=== PATIENT | male | born 1980 | race Caucasian/White ===

== ENCOUNTER 2024-10-31 13:49 | Day surgery (SDC) | payer OTHER ==
[~2024-10-31] VITALS: Ht 188 cm; Wt 111.2 kg
[~2024-10-31 13:49] MED LIST: Amoxicillin500 MG PO; Atropine Sulfate 0.1 MG/ML 10ML SYR ONE; Glycopyrrolate 0.2 MG/ML 1MLVIAL ONE; Lactated Ringer's 1,000 ML IV ONE; Lidocaine 2% 5 ML SDV ONE; Lidocaine HCl/Pf 1% 5 ML VIAL ONE; Methylene Blue 1% 100 MG/10 ML VIAL ONE; Ondansetron HCl 2 MG / ML 2ML Vial ONE; ePHEDrine Sulfate 50 MG/ML 1ML Injection ONE; propofoL 50 ML IV ONE
[2024-10-31] MEDS ORDERED: VENLAFAXINE HCL75 M2 (13:59)
[2024-10-31] MEDS ORDERED: LORATADINE10 MG (13:59)
[2024-10-31] MEDS ORDERED: FLUTICASONE-SA1 EAC1 (13:59)
[2024-10-31] MEDS ORDERED: Lactated Ringer's 1,000 ML IV ONE (14:45)
[2024-10-31] MEDS ORDERED: propofoL 50 ML IV ONE (15:30)
[2024-10-31 16:16] VITALS: BP 108/72
== END 2024-10-31 16:15 | disposition home or self-care (01) ==
LOC: ORSCSDS 13:49
PROVIDERS: Surgery
PROC: 0DJD8ZZ Inspection of Lower Intestinal Tract, Via Natural or Artificial Opening Endoscopic (ICD-10-PCS; principal; 2024-10-31 15:15)
DX: Z12.11 Encounter for screening for malignant neoplasm of colon (principal); F41.9 Anxiety disorder, unspecified; G47.30 Sleep apnea, unspecified; Z87.891 Personal history of nicotine dependence; Z79.899 Other long term (current) drug therapy
CPT/HCPCS: J0461; J2003; J2405; J2704; J7120; Q9968

== ENCOUNTER 2025-04-02 00:56 | Observation (INO) | payer OTHER ==
[2025-04-02] VITALS (10 sets, daily range): BP systolic 129–156; BP diastolic 78–102
[~2025-04-02] VITALS: Ht 188 cm; Wt 110.5 kg
[~2025-04-02 00:56] MED LIST changes: -Atropine Sulfate 0.1 MG/ML 10ML SYR ONE; +FLUTICASONE-SA1 EAC1; -Glycopyrrolate 0.2 MG/ML 1MLVIAL ONE; +LORATADINE10 MG; -Lactated Ringer's 1,000 ML IV ONE; -Lidocaine 2% 5 ML SDV ONE; -Lidocaine HCl/Pf 1% 5 ML VIAL ONE; -Methylene Blue 1% 100 MG/10 ML VIAL ONE; -Ondansetron HCl 2 MG / ML 2ML Vial ONE; +VENLAFAXINE HCL75 M2 PO; -ePHEDrine Sulfate 50 MG/ML 1ML Injection ONE; -propofoL 50 ML IV ONE
[2025-04-02 01:20] LABS: BASOPHILS ABSOLUTE AUTO 0.02 K/mm3 (0.00-0.23); BASOPHILS PERCENT AUTO 0 % (0-2); EOSINOPHILS ABSOLUTE AUTO 0.04 K/mm3 (0.00-0.68); EOSINOPHILS PERCENT AUTO 1 % (0-6); Hematocrit 42.0 % (37.0-53.0); Hemoglobin 14.5 g/dL (13.5-17.5); IMMATURE GRAN ABSOLUTE AUTO 0.01 K/mm3 (0.00-0.10); IMMATURE GRAN PERCENT AUTO 0 % (0-1); LYMPHOCYTES ABSOLUTE AUTO 3.27 K/mm3 (0.84-5.20); LYMPHOCYTES PERCENT AUTO 53 % (21-46); MONOCYTES ABSOLUTE AUTO 0.52 K/mm3 (0.16-1.47); MONOCYTES PERCENT AUTO 8 % (4-13); Mean Corpuscular HGB Conc 34.5 g/dL (31.5-36.5); Mean Corpuscular Volume 86 fL (80-100); NEUTROPHILS ABSOLUTE AUTO 2.36 K/mm3 (1.96-9.15); NEUTROPHILS PERCENT AUTO 38 % (41-73); NRBC ABSOLUTE 0.00 K/mm3 (0.00-0.02); NRBC Auto 0.0 /100 WBC (0.0-0.2); Platelet Count 165 K/mm3 (150-400); RDW Coefficient Variation 12.5 % (11.7-14.2); RDW Standard Deviation 39.2 fL (35.1-46.3)
[2025-04-02 01:38] LABS: Alanine Aminotransfer (ALT/SGP 73.0 U/L (12-78); Albumin, Blood 4.0 g/dL (3.4-5.0); Albumin/Globulin Ratio 1.3 (0.8-1.8); Anion Gap 7.0 mmol/L (3-11); Aspartate Aminotrans (AST/SGOT 26.0 U/L (12-37); Bilirubin, Total 0.2 mg/dL (0.1-1.0); Blood Urea Nitrogen 19.0 mg/dL (8-24); CO2, Blood 27.0 mmol/L (21-32); Calcium, Blood 8.7 mg/dL (8.5-10.1); Chloride, Blood 109.0 mmol/L (98-108); Creatinine, Blood 1.21 mg/dL (0.60-1.20); Globulin, Blood 3.0 g/dL (2.2-4.0); Glucose, Blood 116.0 mg/dL (70-99); Potassium, Blood 3.4 mmol/L (3.5-5.5); Sodium, Blood 140.0 mmol/L (136-145); Total Protein, Blood 7.0 g/dL (6.4-8.2)
[2025-04-02] MEDS ORDERED: NS 1,000 ML IV SCH ×3 (03:00→13:00)
[2025-04-02] MEDS ORDERED: Lidocaine 2% Viscous Soln 15 ML UDC PO ONE (03:00)
[2025-04-02] MEDS ORDERED: Ondansetron HCl 2 MG / ML 2ML Vial IV PRN (05:55)
[2025-04-02] MEDS ORDERED: FentaNYL Citrate 50 MCG/ML 2 ML Injection IV PRN (06:00)
[2025-04-02 06:10] LABS: CHOL/HDL RATIO 3.7; Cholesterol 173 mg/dL (50-200); HDL Cholesterol 47 mg/dL (>39); LDL/HDL RATIO 2.3; Low Density Lipoprotein Chol 109 mg/dL (0-110); Magnesium, Blood 2.2 mg/dL (1.6-2.4); Phosphorus, Blood 2.3 mg/dL (2.5-4.9); Triglycerides 87 mg/dL (30-160); Very Low Density Lipoprot Chol 17 mg/dL (6-32)
[2025-04-02] MEDS ORDERED: Potassium Phosphate Dibasic 10 MM in Dextrose 5% 250 ML IV STA (07:45)
[2025-04-02 07:50] LABS: Anti-Xa UFH, PHA Monitoring <0.10 IU/mL; Prothrombin Time Results 10.9 Sec (9.7-11.5)
[2025-04-02] MEDS ORDERED: Dose Adjust by Pharmacy XX STA (07:52)
[2025-04-02] MEDS ORDERED: Heparin Sodium 5000 Units/ML 1ML MDV IV ONE (07:55)
[2025-04-02] MEDS ORDERED: Heparin Sodium,Porcine/0.5 NS 500 ML IV SCH (07:55)
[2025-04-02] MEDS ORDERED: Verapamil HCL 2.5 MG/ML 2ML Injection ONE (10:52)
[2025-04-02] MEDS ORDERED: Heparin Sodium 1000 Units/ML 10ML MDV ONE (10:52)
[2025-04-02] MEDS ORDERED: NS 250 ML IV ONE (10:53)
[2025-04-02] MEDS ORDERED: NS 1,000 ML IV ONE ×2 (10:53→11:11)
[2025-04-02] MEDS ORDERED: FentaNYL Citrate 50 MCG/ML 2 ML Injection ONE (10:57)
[2025-04-02] MEDS ORDERED: Midazolam HCl 1MG / ML 2ML Vial ONE (10:58)
--- NOTE | 2025-04-02 17:00 | NUR ---
SHIFT NOTE: PT ADMITTED THIS AM AT APPROX 0742. PT AL/OX4 ABLE TO MAKE HIS NEEDS KNOWN. HE IS IN NSR WITH NO ACUTE EVENTS ON TELE. VSS. HE HAD HEPARIN INFUSING PER EMAR UNTIL HE LEFT FOR ANGIO. HE IS ON RA WITH NO REPORTS OF SOB. HE USES THE BATHROOM IND. HEPARIN HAS BEEN STOPPED AND [place] STARTED POST ANGIO. HE HAS A RIGHT RADIAL SITE. IT IS FREE FROM BRUISING, SWELLING, AND REDNESS. THERE WAS SOME INITIAL BLEEDING SO DEFLATING THE THE WRIST STRAP WAS DELAYED. IT IS NOW FULLY DEFLATED WITH NO BLEEDING. PT REPORTS SOME MILD BACK PAIN BUT DENIES FURTHER CHEST PAIN. FAMILY AT BEDSIDE T/O DAY. CALL LIGHT IN REACH. CARE CONTINUES
[2025-04-03 00:41] VITALS: BP 120/82
[2025-04-03 03:54] VITALS: BP 118/87
[2025-04-03 04:04] LABS: BASOPHILS ABSOLUTE AUTO 0.01 K/mm3 (0.00-0.23); BASOPHILS PERCENT AUTO 0 % (0-2); EOSINOPHILS ABSOLUTE AUTO 0.02 K/mm3 (0.00-0.68); EOSINOPHILS PERCENT AUTO 0 % (0-6); Hematocrit 46.1 % (37.0-53.0); Hemoglobin 15.6 g/dL (13.5-17.5); IMMATURE GRAN ABSOLUTE AUTO 0.02 K/mm3 (0.00-0.10); IMMATURE GRAN PERCENT AUTO 0 % (0-1); LYMPHOCYTES ABSOLUTE AUTO 2.10 K/mm3 (0.84-5.20); LYMPHOCYTES PERCENT AUTO 24 % (21-46); MONOCYTES ABSOLUTE AUTO 0.74 K/mm3 (0.16-1.47); MONOCYTES PERCENT AUTO 9 % (4-13); Mean Corpuscular HGB Conc 33.8 g/dL (31.5-36.5); Mean Corpuscular Volume 86 fL (80-100); NEUTROPHILS ABSOLUTE AUTO 5.77 K/mm3 (1.96-9.15); NEUTROPHILS PERCENT AUTO 67 % (41-73); NRBC ABSOLUTE 0.00 K/mm3 (0.00-0.02); NRBC Auto 0.0 /100 WBC (0.0-0.2); Platelet Count 174 K/mm3 (150-400); RDW Coefficient Variation 12.5 % (11.7-14.2); RDW Standard Deviation 39.1 fL (35.1-46.3)
[2025-04-03 04:38] LABS: Alanine Aminotransfer (ALT/SGP 81.0 U/L (12-78); Albumin, Blood 4.1 g/dL (3.4-5.0); Albumin/Globulin Ratio 1.3 (0.8-1.8); Anion Gap 7.0 mmol/L (3-11); Aspartate Aminotrans (AST/SGOT 146.0 U/L (12-37); Bilirubin, Total 0.9 mg/dL (0.1-1.0); Blood Urea Nitrogen 12.0 mg/dL (8-24); CO2, Blood 27.0 mmol/L (21-32); Calcium, Blood 9.0 mg/dL (8.5-10.1); Chloride, Blood 108.0 mmol/L (98-108); Creatinine, Blood 1.24 mg/dL (0.60-1.20); Globulin, Blood 3.1 g/dL (2.2-4.0); Glucose, Blood 116.0 mg/dL (70-99); Potassium, Blood 4.2 mmol/L (3.5-5.5); Sodium, Blood 138.0 mmol/L (136-145); Total Protein, Blood 7.2 g/dL (6.4-8.2)
--- NOTE | 2025-04-03 05:59 | NUR ---
SHIFT SUMMARY NO ACUTE CHANGES THIS SHIFT. VSS. R RADIAL SITE, NO BRUISING/BLEEDING, ARM BOARD IN PLACE. C/O OF HEADACHE, CALL PLACED TO MD KENNEDY FOR TYLENOL ORDER. PT UP TO BATHROOM INDEPENDENTLY. PT EAGER TO GO HOME TODAY, NEEDS TO KNOW DISCHARGE TIME SOON POSSIBLE SO FRIEND CAN ARRANGE RIDE. PT SLEPT MUCH OF NIGHT, CALL LIGHT IN REACH.
[2025-04-03 07:30] VITALS: BP 132/91
[2025-04-03] MEDS ORDERED: CLOP75 PO (09:13)
[2025-04-03] MEDS ORDERED: LIPITOR80 MG PO (09:13)
[2025-04-03] MEDS ORDERED: ASPI81CH PO (09:13)
[2025-04-03] MEDS ORDERED: METO25 PO (09:14)
--- NOTE | 2025-04-03 11:36 | NUR ---
SHIFT SUMMARY/ DISCHARGE NOTE: PT DISCHARGED TO HOME IN NO ACUTE STRESS AT THIS TIME. THIS RN WENT OVER WRITTEN AND VERBAL DISCHARGE INFORMATION WITH PT AND WAS INSTRUCTED TO COME BACK TO THE ED IF SYMPTOMS WORSEN. NO SIGNIFICANT EVENTS HAPPENED THIS SHIFT. IV REMOVED WITH CATHETER INTACT.
== END 2025-04-03 11:29 | disposition home or self-care (01) ==
LOC: ER 00:56 → PCU 05:54
PROVIDERS: Emergency Medicine; ADMIT Internal Medicine
DX: I21.4 Non-ST elevation (NSTEMI) myocardial infarction (principal); E87.6 Hypokalemia; N18.1 Chronic kidney disease, stage 1; J30.2 Other seasonal allergic rhinitis; F17.210 Nicotine dependence, cigarettes, uncomplicated
CPT/HCPCS: 36415; 71045; 76937; 80053; 80061; 83735; 84100; 84484; 85025; 85347; 85520; 85610; 93005; 93010; 93306; 93454; 96361; 96365; 96366; 96374; 96375; 99152; 99153; 99285-25; A9270; C1725; C1769; C1874; C1887; C1894; C9600; G0378; J1644; J2250; J3010; J3246; J7030; J7050; J7060; Q9967

== ENCOUNTER 2025-05-28 10:53 | Emergency (ER) | payer OTHER ==
[~2025-05-28] VITALS: Ht 188 cm; Wt 113.4 kg
[~2025-05-28 10:53] MED LIST changes: +ASPI81CH PO; +CLOP75 PO; +LIPITOR80 MG PO; +METO25 PO
[2025-05-28 11:46] LABS: BASOPHILS ABSOLUTE AUTO 0.03 K/mm3 (0.00-0.23); BASOPHILS PERCENT AUTO 1 % (0-2); EOSINOPHILS ABSOLUTE AUTO 0.03 K/mm3 (0.00-0.68); EOSINOPHILS PERCENT AUTO 1 % (0-6); Hematocrit 44.4 % (37.0-53.0); Hemoglobin 15.1 g/dL (13.5-17.5); IMMATURE GRAN ABSOLUTE AUTO 0.01 K/mm3 (0.00-0.10); IMMATURE GRAN PERCENT AUTO 0 % (0-1); LYMPHOCYTES ABSOLUTE AUTO 2.07 K/mm3 (0.84-5.20); LYMPHOCYTES PERCENT AUTO 36 % (21-46); MONOCYTES ABSOLUTE AUTO 0.53 K/mm3 (0.16-1.47); MONOCYTES PERCENT AUTO 9 % (4-13); Mean Corpuscular HGB Conc 34.0 g/dL (31.5-36.5); Mean Corpuscular Volume 87 fL (80-100); NEUTROPHILS ABSOLUTE AUTO 3.10 K/mm3 (1.96-9.15); NEUTROPHILS PERCENT AUTO 54 % (41-73); NRBC ABSOLUTE 0.00 K/mm3 (0.00-0.02); NRBC Auto 0.0 /100 WBC (0.0-0.2); Platelet Count 176 K/mm3 (150-400); RDW Coefficient Variation 12.8 % (11.7-14.2); RDW Standard Deviation 41.1 fL (35.1-46.3)
[2025-05-28 12:07] LABS: Alanine Aminotransfer (ALT/SGP 90.0 U/L (12-78); Albumin, Blood 4.3 g/dL (3.4-5.0); Albumin/Globulin Ratio 1.4 (0.8-1.8); Anion Gap 6.0 mmol/L (3-11); Aspartate Aminotrans (AST/SGOT 39.0 U/L (12-37); Bilirubin, Total 0.5 mg/dL (0.1-1.0); Blood Urea Nitrogen 12.0 mg/dL (8-24); CO2, Blood 29.0 mmol/L (21-32); Calcium, Blood 9.2 mg/dL (8.5-10.1); Chloride, Blood 107.0 mmol/L (98-108); Creatinine, Blood 1.08 mg/dL (0.60-1.20); Globulin, Blood 3.1 g/dL (2.2-4.0); Glucose, Blood 96.0 mg/dL (70-99); Potassium, Blood 4.4 mmol/L (3.5-5.5); Sodium, Blood 138.0 mmol/L (136-145); Total Protein, Blood 7.4 g/dL (6.4-8.2)
[2025-05-28 13:45] VITALS: BP 144/99
== END 2025-05-28 13:50 | disposition home or self-care (01) ==
LOC: ER 10:53
PROVIDERS: Emergency Medicine
DX: R07.89 Other chest pain (principal); I25.10 Atherosclerotic heart disease of native coronary artery without angina pectoris; I25.2 Old myocardial infarction; F17.210 Nicotine dependence, cigarettes, uncomplicated; Z95.5 Presence of coronary angioplasty implant and graft; Z79.01 Long term (current) use of anticoagulants; Z79.82 Long term (current) use of aspirin; Z79.899 Other long term (current) drug therapy
CPT/HCPCS: 80053; 84484; 85025; 93005; 93010; 99285-25